=== PATIENT | male | born 1950 | race Caucasian/White ===

== ENCOUNTER 2018-03-27 08:27 | Emergency (ER) | payer MEDICARE, BC ==
[~2018-03-27] VITALS: Ht 175.2 cm; Wt 87.5 kg
[2018-03-27 09:06] LABS: BASO % 0.3 % (0.0-1.0); EOS # 0.1 10*3/uL (0.0-0.4); EOS % 0.7 % (1.0-4.0); HEMATOCRIT 46.8 % (42.0-52.0); HEMOGLOBIN 15.8 g/dl (14.0-18.0); LYMPH # 0.8 10*3/uL (1.3-4.4); LYMPH % 11.7 % (27.0-41.0); MEAN CORPUSCULAR HGB CONC 33.8 g/dl (33.0-37.0); MEAN PLATELET VOLUME 9.2 fl (9.6-12.3); MONO # 0.4 10*3/uL (0.1-1.0); MONO % 5.9 % (3.0-9.0); NEUT # 5.5 10*3/uL (2.3-7.9); NEUT % 81.3 % (47.0-73.0); PLATELET COUNT AUTOMATED 182 10*3/uL (130-400); RED BLOOD COUNT 5.26 10*6/uL (4.50-5.90); RED CELL DISTRI WIDTH 12.6 % (0-14.5); WHITE BLOOD COUNT 6.8 10*3/uL (4.8-10.8)
[2018-03-27 09:16] LABS: ACT PARTIAL THROMBO TIME 22.4 SECONDS (20.8-31.5)
[2018-03-27 09:22] LABS: ALBUMIN 3.8 gm/dl (3.1-4.5); ALKALINE PHOSPHATASE 107 U/L (45-117); BUN 16 mg/dl (7-24); CHLORIDE 107 mmol/L (98-107); CREATININE 1.27 mg/dL (0.70-1.30); LIPASE 317 U/L (73-393); POTASSIUM 4.6 mmol/L (3.5-5.1); SGOT/AST 15 IU/L (3-35); SGPT/ALT 24 U/L (12-78); SODIUM 139 mmol/L (136-145); TROPONIN I < 0.015 ng/ml (<0.045)
== END 2018-03-27 13:34 | disposition home or self-care (01) ==
LOC: ED 08:27
PROVIDERS: Emergency Medicine
DX: S00.83XA Contusion of other part of head, initial encounter (principal); E86.0 Dehydration; R55 Syncope and collapse; I10 Essential (primary) hypertension; W01.198A Fall on same level from slipping, tripping and stumbling with subsequent striking against other object, initial encounter; Y93.89 Activity, other specified; Y92.091 Bathroom in other non-institutional residence as the place of occurrence of the external cause; Y99.9 Unspecified external cause status